=== PATIENT | male | born 1940 | race Caucasian/White ===

== ENCOUNTER 2016-11-29 10:15 | Outpatient (CLI) | payer MEDICARE ==
[2016-11-29 14:13] LABS: ALT (SGPT) 19 U/L (0-55); AST (SGOT) 25 U/L (5-34); Albumin 4.2 g/dL (3.4-4.8); Alkaline Phosphatase 66 U/L (40-150); Anion Gap 15 mmol/L (10-20); BUN (Urea Nitrogen) 21 mg/dL (8.4-25.7); Bilirubin, Direct 0.3 mg/dL (0.1-0.3); Bilirubin, Total 0.6 mg/dL (0.2-1.2); Calc. Creatinine Clearance 0 mL/min (70-130); Calcium 9.2 mg/dL (7.8-10.44); Carbon Dioxide 26 mmol/L (23-31); Cardiac Risk 2.1 (Less than 4.5); Chloride 100 mmol/L (98-107); Cholesterol 114 mg/dL (< 200 Desired); Estimated GFR-MDRD 67; Glucose 132 mg/dL (83-110); HDL Cholesterol 55 mg/dL (>60 Neg Risk); LDL Cholesterol, Calculated 42 mg/dL; Potassium 4.1 mmol/L (3.5-5.1); Protein, Total 8.4 g/dL (5.8-8.1); Sodium 137 mmol/L (136-145); Triglycerides 83 mg/dL (Less than 150)
[2016-11-29 14:29] LABS: #Lymphocytes 0.7 thou/uL (1.20-3.40); #Monocytes 0.4 thou/uL (0.11-0.59); #Neutrophils 8.6 thou/uL (1.40-6.50); %Basophils 0.3 % (0.0-1.0); %Eosinophils 0.4 % (0.0-10.0); %Lymphocytes 7.3 % (21.0-51.0); %Monocytes 4.1 % (0.0-10.0); %Neutrophils 87.9 % (42.0-75.0); Hemoglobin 12.8 g/dL (14.0-18.0); Mean Corpuscular HGB CONC 30.7 g/dL (32.0-36.0); Mean Corpuscular Volume 94.4 fl (80.0-94.0); Mean Platelet Volume 7.7 fL (7.4-10.4); Platelet Count 317 thou/uL (130-400); RBC Distribution Width 14.7 % (11.5-14.5); Red Blood Cell (RBC) Count 4.41 mill/uL (4.70-6.10); White Blood Cell (WBC) Count 9.8 thou/uL (4.8-10.8)
[2016-11-29 14:31] LABS: Hemoglobin A1c 5.8 % (4.0-6.0)
--- NOTE | 2016-11-30 07:31 | RAD ---
CHEST 2 VIEWS: History Chronic bronchitis followup. COMPARISON: Chest 1 view 08/12/16. FINDINGS: Chronic pleural and parenchymal changes in the lung bases are similar. There is prominence of the p ulmonary vasculature bilaterally. Scar in the right upper lobe is similar. Cardiac device is similar. There is suture material in the upper lobes bilaterally. IMPRESSION: No significant change in radiographic appearance of the chest. No acute intrathoracic abnormality. POS: [facility]
== END 2016-11-29 10:16 | disposition home or self-care (01) ==
LOC: NAV LAB 10:15
PROVIDERS: ATTEND Internal Medicine Sleep Medicine
DX: J42 Unspecified chronic bronchitis (principal); J43.9 Emphysema, unspecified; Z79.899 Other long term (current) drug therapy
CPT/HCPCS: 36415; 71020; 80048; 80061; 80076; 83036; 85025

== ENCOUNTER 2016-12-11 06:57 | Emergency (ER) | payer MEDICARE ==
[2016-12-11] MEDS ORDERED: methylPREDNISolone Sod Succ/PF 125 MG/2 ML VIAL ONE (07:13)
[2016-12-11 07:34] LABS: #Basophils 0.1 thou/uL (0.0-0.2); #Eosinphils 0.2 thou/uL (0.0-0.7); #Lymphocytes 1.9 thou/uL (1.20-3.40); #Monocytes 1.1 thou/uL (0.11-0.59); #Neutrophils 5.8 thou/uL (1.40-6.50); %Basophils 0.7 % (0.0-1.0); %Eosinophils 2.2 % (0.0-10.0); %Lymphocytes 20.5 % (21.0-51.0); %Monocytes 12.2 % (0.0-10.0); %Neutrophils 64.4 % (42.0-75.0); Hemoglobin 12.3 g/dL (14.0-18.0); Mean Corpuscular Hemoglobin 28.9 pg (27.0-31.0); Mean Corpuscular Volume 90.3 fl (80.0-94.0); Mean Platelet Volume 7.1 fL (7.4-10.4); Platelet Count 210 thou/uL (130-400); RBC Distribution Width 14.2 % (11.5-14.5); Red Blood Cell (RBC) Count 4.25 mill/uL (4.70-6.10); White Blood Cell (WBC) Count 9.1 thou/uL (4.8-10.8)
[2016-12-11 07:55] LABS: CKMB 3.3 ng/mL (0-6.6); Troponin I Less than 0.010 ng/mL (< 0.028)
[2016-12-11 07:56] LABS: ALT (SGPT) 19 U/L (0-55); AST (SGOT) 29 U/L (5-34); Albumin 3.7 g/dL (3.4-4.8); Alkaline Phosphatase 57 U/L (40-150); Anion Gap 19 mmol/L (10-20); BUN (Urea Nitrogen) 20 mg/dL (8.4-25.7); Bilirubin, Total 0.4 mg/dL (0.2-1.2); Calc. Creatinine Clearance 0 mL/min (70-130); Calcium 8.8 mg/dL (7.8-10.44); Carbon Dioxide 22 mmol/L (23-31); Chloride 97 mmol/L (98-107); Estimated GFR-MDRD 59; Globulin 3.6 g/dL (2.4-3.5); Glucose 84 mg/dL (83-110); Potassium 5.1 mmol/L (3.5-5.1); Protein, Total 7.3 g/dL (5.8-8.1); Sodium 133 mmol/L (136-145)
--- NOTE | 2016-12-11 08:05 | RAD ---
EXAM: ONE VIEW CHEST: COMPARISON: 08/12/16 and 11/29/16. HISTORY: Difficulty breathing. Dyspnea. FINDINGS: Stable left-sided transvenous pacemaker. There is atherosclerosis of the aorta. Normal cardiac sydnie houette. The pulmonary vessels are within normal limits. There are patchy interstitial opacities t hroughout the lung parenchyma. Trace bilateral pleural effusions. No pneumothorax or osseous abnor malities. IMPRESSION: 1. Trace bilateral effusions. 2. Chronic parenchymal changes. POS: [facility]
== END 2016-12-11 08:08 | disposition home or self-care (01) ==
LOC: NAV ERS 06:57
DX: J44.1 Chronic obstructive pulmonary disease with (acute) exacerbation (principal); I25.2 Old myocardial infarction; E78.5 Hyperlipidemia, unspecified; I10 Essential (primary) hypertension; G62.9 Polyneuropathy, unspecified; Z87.891 Personal history of nicotine dependence; Z79.899 Other long term (current) drug therapy
CPT/HCPCS: 36415; 71010; 80053; 82553; 84484; 85025; 93005; 94640; 96374; J2930; J7620

== ENCOUNTER 2016-12-15 03:25 | Emergency (ER) | payer MEDICARE ==
[2016-12-15] MEDS ORDERED: cefTRIAXone\\ROCEPHIN 1 GM VIAL ONE (03:46)
[2016-12-15] MEDS ORDERED: Lidocaine 1% 20 ML MDV ONE (03:47)
[2016-12-15] MEDS ORDERED: Sodium Chloride For Inhalation 0.9% 3 ML NEB ONE (04:06)
== END 2016-12-15 04:20 | disposition home or self-care (01) ==
LOC: NAV ERS 03:25
DX: J44.1 Chronic obstructive pulmonary disease with (acute) exacerbation (principal); G62.9 Polyneuropathy, unspecified; I25.2 Old myocardial infarction; I10 Essential (primary) hypertension; E78.5 Hyperlipidemia, unspecified; Z87.891 Personal history of nicotine dependence; Z95.0 Presence of cardiac pacemaker
CPT/HCPCS: 94640; 96372; J0696; J2001; J7620

== ENCOUNTER 2017-01-14 10:55 | Emergency (ER) | payer MEDICARE ==
[2017-01-14] MEDS ORDERED: methylPREDNISolone Sod Succ/PF 125 MG/2 ML VIAL ONE (11:16)
--- NOTE | 2017-01-14 11:48 | RAD ---
FRONTAL VIEW CHEST INDICATIONS: COPD. Difficulty breathing. COMPARISON: 12/11/2016 FINDINGS: There is re-demonstration of a stable area of linear density of the upper to mid right hemithorax. Bibasilar scarring remains. The cardiac silhouette is stable. No significant interval change ident ified. IMPRESSION: Stable chest. POS: [facility]
[2017-01-14 12:01] LABS: #Basophils 0.1 thou/uL (0.0-0.2); #Eosinphils 0.1 thou/uL (0.0-0.7); #Lymphocytes 1.4 thou/uL (1.20-3.40); #Monocytes 0.8 thou/uL (0.11-0.59); #Neutrophils 5.5 thou/uL (1.40-6.50); %Basophils 0.6 % (0.0-1.0); %Eosinophils 1.7 % (0.0-10.0); %Lymphocytes 17.5 % (21.0-51.0); %Monocytes 10.4 % (0.0-10.0); %Neutrophils 69.7 % (42.0-75.0); Hemoglobin 11.3 g/dL (14.0-18.0); Mean Corpuscular HGB CONC 31.1 g/dL (32.0-36.0); Mean Corpuscular Hemoglobin 28.3 pg (27.0-31.0); Mean Corpuscular Volume 90.8 fl (80.0-94.0); Mean Platelet Volume 6.9 fL (7.4-10.4); Platelet Count 229 thou/uL (130-400); Red Blood Cell (RBC) Count 4.01 mill/uL (4.70-6.10); White Blood Cell (WBC) Count 7.8 thou/uL (4.8-10.8)
[2017-01-14 12:20] LABS: ALT (SGPT) 11 U/L (8-55); AST (SGOT) 21 U/L (5-34); Albumin 3.7 g/dL (3.4-4.8); Alkaline Phosphatase 53 U/L (40-150); Anion Gap 18 mmol/L (10-20); BUN (Urea Nitrogen) 11 mg/dL (8.4-25.7); Bilirubin, Total 0.4 mg/dL (0.2-1.2); Calc. Creatinine Clearance 0 mL/min (70-130); Calcium 9.2 mg/dL (7.8-10.44); Carbon Dioxide 21 mmol/L (23-31); Chloride 99 mmol/L (98-107); Estimated GFR-MDRD 85; Globulin 3.5 g/dL (2.4-3.5); Glucose 101 mg/dL (83-110); Potassium 4.5 mmol/L (3.5-5.1); Protein, Total 7.2 g/dL (5.8-8.1); Sodium 133 mmol/L (136-145)
[2017-01-14] MEDS ORDERED: Ketorolac Tromethamine 30 MG/ML VIAL ONE (12:57)
== END 2017-01-14 13:08 | disposition home or self-care (01) ==
LOC: NAV ERS 10:55
DX: J45.901 Unspecified asthma with (acute) exacerbation (principal); G62.9 Polyneuropathy, unspecified; I25.2 Old myocardial infarction; E78.5 Hyperlipidemia, unspecified; I10 Essential (primary) hypertension; J44.9 Chronic obstructive pulmonary disease, unspecified; Z87.891 Personal history of nicotine dependence; Z95.0 Presence of cardiac pacemaker; Z79.02 Long term (current) use of antithrombotics/antiplatelets; Z79.891 Long term (current) use of opiate analgesic; Z79.899 Other long term (current) drug therapy
CPT/HCPCS: 36415; 71010; 80053; 85025; 94640; 96374; 96375; J1885; J2930; J7620

== ENCOUNTER 2017-01-31 18:39 | Emergency (ER) | payer MEDICARE ==
[2017-01-31] MEDS ORDERED: methylPREDNISolone Sod Succ/PF 125 MG/2 ML VIAL ONE (19:06)
[2017-01-31] MEDS ORDERED: Water For Inject, Bacteriostat 30 ML ONE (19:07)
--- NOTE | 2017-01-31 19:30 | RAD ---
PA AND LATERAL CHEST: Comparison: 11-29-16 History: Dyspnea. FINDINGS: Heart size is within normal limits. A pacemaker is present. Post-operative changes of both lungs are noted. Scarring in the right upper lobe is seen. COPD changes are present. IMPRESSION: Post-operative and COPD changes of the lungs. No acute process. POS: [facility]
[2017-01-31] MEDS ORDERED: Azithromycin 250 MG TAB ONE (19:31)
== END 2017-01-31 19:37 | disposition home or self-care (01) ==
LOC: NAV ERS 18:39
DX: J44.1 Chronic obstructive pulmonary disease with (acute) exacerbation (principal); G62.9 Polyneuropathy, unspecified; I25.2 Old myocardial infarction; E78.5 Hyperlipidemia, unspecified; I10 Essential (primary) hypertension; F32.9 Major depressive disorder, single episode, unspecified; Z87.891 Personal history of nicotine dependence; Z95.0 Presence of cardiac pacemaker; Z79.02 Long term (current) use of antithrombotics/antiplatelets; Z79.899 Other long term (current) drug therapy
CPT/HCPCS: 71020; 96372; J2930

== ENCOUNTER 2017-02-04 16:55 | Emergency (ER) | payer MEDICARE ==
[2017-02-04] MEDS ORDERED: methylPREDNISolone Sod Succ/PF 125 MG/2 ML VIAL ONE (17:19)
[2017-02-04] MEDS ORDERED: cefTRIAXone\\ROCEPHIN 1 GM VIAL ONE (17:20)
[2017-02-04] MEDS ORDERED: Lidocaine 1% 20 ML MDV ONE (17:21)
[2017-02-04] MEDS ORDERED: HYDROcodone/Acetaminophen 5/325 mg Tablet ONE (17:23)
[2017-02-04] MEDS ORDERED: Sterile Water 10 ML ONE (17:38)
== END 2017-02-04 17:47 | disposition home or self-care (01) ==
LOC: NAV ERS 16:55
DX: J44.9 Chronic obstructive pulmonary disease, unspecified (principal); I25.2 Old myocardial infarction; G62.9 Polyneuropathy, unspecified; E78.5 Hyperlipidemia, unspecified; I10 Essential (primary) hypertension; F32.9 Major depressive disorder, single episode, unspecified; Z95.0 Presence of cardiac pacemaker; Z87.891 Personal history of nicotine dependence; Z79.52 Long term (current) use of systemic steroids; Z79.899 Other long term (current) drug therapy; Z79.02 Long term (current) use of antithrombotics/antiplatelets; Z79.891 Long term (current) use of opiate analgesic
CPT/HCPCS: 94760; 96372; A4216; J0696; J2001; J2930

== ENCOUNTER 2017-02-23 15:23 | Emergency (ER) | payer MEDICARE ==
[2017-02-23] MEDS ORDERED: Diazepam 5 MG TAB ONE (15:51)
[2017-02-23] MEDS ORDERED: traMADol HCl 50 MG TAB ONE (15:52)
[2017-02-23] MEDS ORDERED: Promethazine HCl 25 MG/ML VIAL ONE (15:53)
== END 2017-02-23 16:18 | disposition home or self-care (01) ==
LOC: NAV ERS 15:23
DX: R51 Headache (principal); F43.9 Reaction to severe stress, unspecified; L30.9 Dermatitis, unspecified; J30.1 Allergic rhinitis due to pollen
CPT/HCPCS: 96372; J2550

== ENCOUNTER 2017-02-25 23:33 | Emergency (ER) | payer MEDICARE ==
[2017-02-26 00:20] LABS: #Basophils 0.1 thou/uL (0.0-0.2); #Eosinphils 0.2 thou/uL (0.0-0.7); #Monocytes 0.9 thou/uL (0.11-0.59); #Neutrophils 5.3 thou/uL (1.40-6.50); %Basophils 1.5 % (0.0-1.0); %Eosinophils 2.5 % (0.0-10.0); %Lymphocytes 23.2 % (21.0-51.0); %Monocytes 10.3 % (0.0-10.0); %Neutrophils 62.5 % (42.0-75.0); Hemoglobin 11.5 g/dL (14.0-18.0); Mean Corpuscular HGB CONC 32.9 g/dL (32.0-36.0); Mean Corpuscular Hemoglobin 29.7 pg (27.0-31.0); Mean Corpuscular Volume 90.3 fl (80.0-94.0); Mean Platelet Volume 6.6 fL (7.4-10.4); Platelet Count 312 thou/uL (130-400); RBC Distribution Width 15.5 % (11.5-14.5); Red Blood Cell (RBC) Count 3.85 mill/uL (4.70-6.10); White Blood Cell (WBC) Count 8.4 thou/uL (4.8-10.8)
[2017-02-26 00:42] LABS: Bilirubin Negative (Negative); Blood, Urine Moderate (Negative); Clarity Clear (Clear); Glucose, Urine (Dipstick) Negative (Negative); Leukocyte Negative (Negative); Nitrite Negative (Negative); Protein, Urine (Dipstick) Negative (Neg-Trace); Urobilinogen 0.2 mg/dL (0.2-1.0); pH, Urine 5.5 (5.0-9.0)
[2017-02-26 00:46] LABS: CKMB 2.8 ng/mL (0-6.6); Troponin I 0.018 ng/mL (< 0.028)
[2017-02-26 00:47] LABS: Bacteria/HPF None Seen HPF (None Seen); RBC/HPF 0-3 HPF (0-3); Squamous Epithelial None Seen HPF (0-3); WBC/HPF None Seen HPF (0-3)
[2017-02-26 00:50] LABS: Amphetamine Not Detected (NotDetected); Barbiturates Screen Not Detected (NotDetected); Benzodiazepine Screen Detected (NotDetected); Cocaine Metabolite Screen Not Detected (NotDetected); Medtox Control Line Valid? VALID (VALID); Methadone Not Detected (NotDetected); Methamphetamine Not Detected (NotDetected); Opiate Screen Detected (NotDetected); Oxycodone Screen Not Detected (NotDetected); Phencyclidine (PCP) Not Detected (NotDetected); THC/Cannabinoid Screen Not Detected (NotDetected); Tricyclic Screen Not Detected (NotDetected)
[2017-02-26 00:57] LABS: ALT (SGPT) 13 U/L (8-55); AST (SGOT) 18 U/L (5-34); Albumin 3.2 g/dL (3.4-4.8); Alcohol Less than 10 mg/dL (Less than 10); Alkaline Phosphatase 51 U/L (40-150); Anion Gap 15 mmol/L (10-20); BUN (Urea Nitrogen) 15 mg/dL (8.4-25.7); Bilirubin, Total 0.2 mg/dL (0.2-1.2); Calc. Creatinine Clearance 0 mL/min (70-130); Calcium 8.5 mg/dL (7.8-10.44); Carbon Dioxide 21 mmol/L (23-31); Chloride 103 mmol/L (98-107); Estimated GFR-MDRD Greater than 90; Globulin 3.2 g/dL (2.4-3.5); Glucose 100 mg/dL (83-110); Potassium 3.8 mmol/L (3.5-5.1); Protein, Total 6.4 g/dL (5.8-8.1); Sodium 135 mmol/L (136-145)
[2017-02-26] MEDS ORDERED: HYDROcodone/Acetaminophen 5/325 mg Tablet ONE (01:02)
--- NOTE | 2017-02-26 08:53 | CT ---
PRELIMINARY REPORT/[facility]/EMERGENCY AFTER HOURS PROCEDURE: EXAM: CT Head Without Intravenous Contrast CLINICAL HISTORY: 76 years old, male; Pain; Headache; Headache not specified TECHNIQUE: Axial computed tomography images of the head/brain without intravenous contrast. EXAM DATE/TIME: Exam ordered 02/26/2017 12:14 AM COMPARISON: No relevant prior studies available. FINDINGS: Brain: Volume loss and chronic small vessel ischemic change. No hemorrhage. Ventricles: Unremarkable. No ventriculomegaly. Bones/joints: Unremarkable. No acute fracture. Soft tissues: Unremarkable. Sinuses: Unremarkable as visualized. No acute sinusitis. Mastoid air cells: Unremarkable as visualized. No mastoid effusion. Nasopharynx: 2 cm right nasal passage polyp. IMPRESSION: 1. 2 cm right nasal passage polyp. 2. No acute brain findings. Thank you for allowing us to participate in the care of your patient. Dictated and Authenticated by: Sang Mills MD 02/26/2017 12:40 AM Central Time ([place] \T\ [place]) FINAL REPORT EMERGENCY/AFTER HOURS STUDY CT BRAIN PERFORMED WITHOUT CONTRAST ENHANCEMENT HISTORY: Headache. Questionable head trauma. COMPARISON: 08/12/2016 FINDINGS: There is generalized ventricular and sulcal prominence. There are no signs of intracerebral hemorrh age or extraaxial fluid collections. No mass lesion or mass effect. A polypoid-like area in the ri ght nasal cavity is noted. There is mucosal change within the maxillary and ethmoid air cells. IMPRESSION: 1. Atrophy. No acute intracranial abnormalities. 2. Right-sided nasal polyp. This report is in agreement with the temporary report issued by [facility]. POS: [facility]
== END 2017-02-26 01:06 | disposition home or self-care (01) ==
LOC: NAV ERS 23:33
DX: S00.01XA Abrasion of scalp, initial encounter (principal); I25.2 Old myocardial infarction; E78.5 Hyperlipidemia, unspecified; I10 Essential (primary) hypertension; J44.9 Chronic obstructive pulmonary disease, unspecified; F32.9 Major depressive disorder, single episode, unspecified; Z87.891 Personal history of nicotine dependence; Z79.899 Other long term (current) drug therapy; W22.8XXA Striking against or struck by other objects, initial encounter
CPT/HCPCS: 70450; 80053; 80306; 80307; 81003; 81015; 82553; 84484; 85025; 93005

== ENCOUNTER 2017-10-08 09:47 | Outpatient (CLI) | payer MEDICARE, OTHER ==
--- NOTE | 2017-10-08 10:38 | RAD ---
PA AND LATERAL CHEST: Date: 10/08/17 HISTORY: COPD and shortness of breath. COMPARISON: 01/31/17. FINDINGS: Dual lead left subclavian cardiac pacemaking device remains in place. Cardiac silhouette and pulmonar y vasculature are within normal limits. Lungs remain hyperexpanded with mild flattening of the hemidi aphragm suggesting COPD. Increased linear opacities are seen throughout the lungs bilaterally, likely related to areas of scarring with greater degree of scarring in the right upper lobe. There is radio paque suture material at the medial aspect of each right lung apex. Calcified granuloma is again pres ent at the right lung base. No new focal area of consolidation or pleural fluid is seen. IMPRESSION: Stable chest with chronic lung changes, as well as postoperative changes. POS: [facility]
== END 2017-10-08 09:48 | disposition home or self-care (01) ==
LOC: NAV RAD 09:47
PROVIDERS: ATTEND Nurse Practitioner Family
DX: J44.1 Chronic obstructive pulmonary disease with (acute) exacerbation (principal)
CPT/HCPCS: 71046

== ENCOUNTER 2018-10-12 10:02 | Outpatient (CLI) | payer MEDICARE, OTHER ==
--- NOTE | 2018-10-12 12:21 | RAD ---
PA AND LATERAL VIEWS CHEST: HISTORY: Exacerbation of shortness of breath. FINDINGS: Comparison is made with the exam of 10/08/2017. A left-sided pacemaking device remains in place. 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 Chronic changes in the lung parenchyma and evidence of old granulomatous disease was redemonstrated. The heart size is normal. The aorta is tortuous. No lobar consolidation, pneumothoraces, or pleural effusions are se en. There are degenerative changes in the spine. IMPRESSION: Stable exam. No acute process. POS: [facility]
== END 2018-10-12 10:03 | disposition home or self-care (01) ==
LOC: NAV RAD 10:02
PROVIDERS: ATTEND Internal Medicine Sleep Medicine
DX: J44.9 Chronic obstructive pulmonary disease, unspecified (principal)
CPT/HCPCS: 71046